=== PATIENT | female | born 1955 | race American Indian/Alaskan Native ===

== ENCOUNTER 2017-11-20 10:43 | Emergency (ER) | payer OTHER ==
[2017-11-20] MEDS ORDERED: NORMODYNE IV ONE (11:14)
--- NOTE | 2017-11-20 11:29 | Emergency Department Report ---
ED Chest Pain HPI - General Chief Complaint: Dizziness Stated Complaint: HIGH BP Time Seen by Provider: 11/20/17 11:05 Source: EMS Mode of arrival: Stretcher Limitations: Physical Limitation - History of Present Illness Initial Comments: 62-year-old female presents to the emergency department from work with a complaint of elevated blood pressure, dizziness, and some mild chest discomfort. 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 She went to the school nurse and was found to have a blood pressure with a systolic of 210. The patient does have a history of hypertension for which she takes lisinopril and HCTZ and took them both this morning and takes them compliantly. The patient does admit to at least one cup of coffee per day, sometimes more. She denies any tobacco or illicit drug use or abuse. She has a primary care physician through [facility]. - Related Data Previous Rx's Medication Instructions Recorded Last Taken Type Amlodipine Besylate [Norvasc] 5 mg PO QDAY #30 tablet 11/20/17 Unknown Rx Allergies Allergy/AdvReac Type Severity Reaction Status Date / Time morphine Allergy Anaphylaxis Verified 11/20/17 11:07 Heart Score - HEART Score History: Slightly suspicious EKG: Non-specific Age: 45-65 Risk factors: 1-2 risk factors Troponin: < normal limit HEART Score: 3 - Critical Actions Critical Actions: 0-3 pts:0.9-1.7%risk of adverse cardiac event.Candidate for discharge ED Review of Systems ROS: Stated complaint: HIGH BP Other details as noted in HPI Comment: All other systems reviewed and negative Constitutional: denies: chills, fever Eyes: denies: eye pain, eye discharge, vision change ENT: denies: ear pain, throat pain Respiratory: denies: cough, shortness of breath, wheezing Cardiovascular: chest pain. denies: palpitations Gastrointestinal: denies: abdominal pain, nausea, diarrhea Genitourinary: denies: urgency, dysuria, discharge Musculoskeletal: denies: back pain, joint swelling, arthralgia Skin: denies: rash, lesions Neurological: other (dizziness). denies: headache, weakness, paresthesias ED Past Medical Hx - Social History Smoking Status: Unknown if ever smoked - Medications Home Medications: Home Medications Medication Instructions Recorded Confirmed Last Taken Type Amlodipine Besylate [Norvasc] 5 mg PO QDAY #30 tablet 11/20/17 Unknown Rx ED Physical Exam - General Limitations: Physical Limitation - Other Other exam information: GENERAL: The patient is well-developed well-nourished. HENT: Normocephalic. Atraumatic. Patient has moist mucous membranes. EYES: Extraocular motions are intact. Pupils equal reactive to light bilaterally. NECK: Supple. Trachea is midline. CHEST/LUNGS: Clear to auscultation. There is no respiratory distress noted. HEART/CARDIOVASCULAR: Regular. There is no tachycardia. There is no murmur. ABDOMEN: Abdomen is soft, nontender. Patient has normal bowel sounds. There is no abdominal distention. SKIN: Skin is warm and dry. NEURO: The patient is awake, alert, and oriented. The patient is cooperative. The patient has no focal neurologic deficits. The patient has normal speech. MUSCULOSKELETAL: There is no tenderness or deformity. There is no limitation range of motion. There is no evidence of acute injury. ED Course Vital Signs 11/20/17 11/20/17 11/20/17 10:56 10:59 11:00 Temperature Pulse Rate 77 Respiratory 18 Rate Blood Pressure 187/80 159/81 Blood Pressure [Right] O2 Sat by Pulse 98 99 99 Oximetry 11/20/17 11/20/17 11/20/17 11:05 11:30 12:01 Temperature 98.1 F Pulse Rate 82 Respiratory 18 Rate Blood Pressure 166/77 156/78 Blood Pressure 187/80 [Right] O2 Sat by Pulse 97 97 98 Oximetry 11/20/17 11/20/17 11/20/17 12:23 12:30 13:01 Temperature Pulse Rate 80 Respiratory Rate Blood Pressure 156/78 146/62 165/78 Blood Pressure [Right] O2 Sat by Pulse 98 100 Oximetry 11/20/17 11/20/17 11/20/17 13:30 14:00 14:52 Temperature Pulse Rate 66 76 Respiratory Rate Blood Pressure 168/73 171/82 167/70 Blood Pressure [Right] O2 Sat by Pulse 100 100 Oximetry SOHAM score - Soham Score Age > 65: (0) No Aspirin use within the Past 7 Days: (0) No 3 or more CAD Risk Factors: (0) No 2 or more Angina events in past 24 hrs: (0) No Known CAD with more than 50% Stenosis: (0) No Elevated Cardiac Markers: (0) No ST Deviation Greater than 0.5mm: (0) No SOHAM Score: 0 ED Medical Decision Making - Lab Data Result diagrams: 11/20/17 11:39 11/20/17 11:39 - EKG Data -: EKG Interpreted by Me EKG shows normal: sinus rhythm, axis, intervals (prolonged OH interval), QRS complexes, ST-T waves (nonspecific ST-T waves) Rate: normal - EKG Data When compared to previous EKG there are: previous EKG unavailable Interpretation: nonspecific ST-T wave jose (prolonged OH interval) - Radiology Data Radiology results: image reviewed interpreted by me: Chest x-ray does not show any acute process. There are no pleural effusions, obvious pneumonia and there is no pneumothorax. - Medical Decision Making The patient presented with some dizziness and a short episode of some chest discomfort with some hypertension after she says that she got upset at work. Since being in the emergency department, the patient is mostly concerned with the elevated blood pressure despite her compliance with her blood pressure medications. She denies any current chest pain or dizziness and never had any headache, shortness of breath. EKG does not show any ST elevation NM or dysrhythmia. Labs up in unremarkable including negative troponins 2. She was given a small dose of labetalol at the beginning of her workup and a small dose of hydralazine prior to discharge and her blood pressures came down to a much more reasonable level. Just prior to discharge I personally saw the blood pressure at 147/82. The patient continually says "I feel fine." She is low on the heart score and has a SOHAM score of 0. She appears safe for discharge home at this time. We discussed dietary and lifestyle changes to make including decreasing salt caffeinated products. She will be started on a mid dose of amlodipine and will keep a blood pressure log. She will follow up with her primary care physician on Thursday. She has been given a referral for cardiology. She will return to the emergency department immediately with any return of her chest pain, uncontrolled blood pressure despite compliance, or with any acute distress. - Differential Diagnosis NM, GERD, Hypertensive urgency, Anxiety Critical Care Time: No Critical care attestation.: If time is entered above; I have spent that time in minutes in the direct care of this critically ill patient, excluding procedure time. ED Disposition Clinical Impression: Hypertensive urgency, Intermittent chest pain Disposition: TO HOME OR SELFCARE Is pt being admited?: No Condition: Stable Instructions: Chest Pain (ED), Hypertension (ED) Additional Instructions: Please follow-up with your primary care doctor on Thursday. I have given you a referral for a local back gray cloth washer, Dr. Damon, in case she would like to follow up regarding your brief chest discomfort. Return to the emergency department immediately with any return or development of chest pain, shortness of breath, uncontrollable blood pressure despite medication compliance, or with any acute distress. I started you on a new blood pressure medication called Norvasc/ amlodopine, to be taken once daily. Try and stay away from foods that are high in salt and caffeinated products such as coffee. Keep a blood pressure log. Prescriptions: Amlodipine Besylate [Norvasc] 5 mg PO QDAY #30 tablet Referrals: PRIMARY MD MAXIM [Primary Care Provider] - 3-5 Days HAMMAD DAMON MD [Staff Physician] - 3-5 Days Time of Disposition: 15:24
[2017-11-20 11:50] LABS: Basophils % (Auto) 1.2 % (0.0-1.8); Hematocrit 47.5 % (30.3-42.9); Hemoglobin 15.3 gm/dl (10.1-14.3); Lymphocytes # (Auto) 0.8 K/mm3 (1.2-5.4); Lymphocytes % (Auto) 20.5 % (13.4-35.0); Mean Corpuscular HGB Conc 32 % (30-34); Mean Corpuscular Volume 81 fl (79-97); Monocytes # (Auto) 0.4 K/mm3 (0.0-0.8); Monocytes % (Auto) 9.1 % (0.0-7.3); Platelet Count 146 K/mm3 (140-440); Red Cell Distribution Width 14.1 % (13.2-15.2)
[2017-11-20 11:53] LABS: Mean Corpuscular Hemoglobin 26 pg (28-32)
[2017-11-20 12:08] LABS: Alanine Aminotransferase 20 units/L (7-56); Albumin 4.7 g/dL (3.9-5); BUN/Creatinine Ratio 25; Blood Urea Nitrogen 15 mg/dL (7-17); Hemolysis Index 10
--- NOTE | 2017-11-20 12:11 | XRay Report ---
PORTABLE CHEST: Chest pain. An AP portable view of the chest demonstrates a normal cardiac contour considering the limits of this technique. The lungs are clear with no evidence of infiltrate, fluid or failure. IMPRESSION: Normal portable chest.
[2017-11-20 12:45] LABS: Bilirubin,Urine NEG (Negative); Blood,Urine NEG (Negative); Color,Urine Straw (Yellow); Protein,Urine <15 mg/dL mg/dL (Negative); RBC,Urine < 1.0 /HPF (0.0-6.0); Urobilinogen,Urine < 2.0 mg/dL (<2.0)
[2017-11-20] MEDS ORDERED: APRESOLINE IV ONE (14:20)
[2017-11-20 15:56] VITALS: BP 149/54
== END 2017-11-20 16:11 | disposition home or self-care (01) ==
LOC: ED 10:43
DX: I16.0 Hypertensive urgency (principal); Z88.6 Allergy status to analgesic agent
CPT/HCPCS: 36415; 71045; 80053; 81001; 84443; 84484; 85025; 93005; 93010; 96374; 96375; 99285; J0360